=== PATIENT | female | born 1965 | race Caucasian/White ===

== ENCOUNTER 2020-03-14 23:01 | Emergency (ER) | payer SELFPAY ==
[~2020-03-14] VITALS: Ht 152.4 cm; Wt 54.4 kg
[2020-03-14 23:30] VITALS: BP_SYST 130
--- NOTE | 2020-03-14 23:30 | NUR ---
Pt ambulatory to bed 3 for evaluation
--- NOTE | 2020-03-14 23:42 | NUR ---
ER Dr. MUSA at bedside examining patient.
[2020-03-14] MEDS ORDERED: NACL 0.9% 1,000 ML IV ONE (23:53)
--- NOTE | 2020-03-14 23:57 | NUR ---
PT IN [facility] SIDE RAILS UP.
[2020-03-15] MEDS ORDERED: MORPHINE 2 MG/ML INJ. SYRINGE IVP ONE
[2020-03-15] MEDS ORDERED: ONDANSETRON HCL 4 MG/2 ML VIAL IVP ONE
[2020-03-15 00:10] LABS: BILIRUBIN,URINE NEGATIVE (NEGATIVE); BLOOD, URINE 3+ (NEGATIVE); COLOR,URINE YELLOW (YELLOW); GLUCOSE,URINE NEGATIVE (NEGATIVE); KETONES,URINE 2+ (NEGATIVE); LEUKOCYTE ESTERASE ,URINE NEGATIVE (NEGATIVE); NITRITE, URINE NEGATIVE (NEGATIVE); PROTEIN URINE NEGATIVE (NEGATIVE); UROBILINOGEN,URINE 0.2 (0.2-1.0)
[2020-03-15 00:13] LABS: CLARITY/URINE SLIGHTLY CLOUDY (CLEAR)
[2020-03-15 00:44] LABS: CALCIUM 8.7 mg/dL (8.4-11.0); CREATININE 0.93 mg/dL (0.55-1.30); POTASSIUM 3.4 mmol/L (3.5-5.1)
[2020-03-15 00:50] LABS: ALBUMIN 3.6 g/dL (3.4-4.8); TOTAL BILIRUBIN 0.8 mg/dL (0.0-1.0)
[2020-03-15 00:51] LABS: BASOPHILS % (AUTO) 0.4 % (0.0-2.0); EOSINOPHILS # (AUTO) 0.1 K/uL (0.0-0.4); EOSINOPHILS % (AUTO) 0.8 % (0.0-4.0); HEMOGLOBIN 13.3 g/dL (12.0-16.0); LYMPHOCYTES # (AUTO) 1.3 K/uL (1.0-5.5); LYMPHOCYTES % (AUTO) 11.7 % (20.5-51.5); MEAN CORPUSCULAR HEMOGLOBIN 30 pg (27-31); MEAN CORPUSCULAR HGB CONC 33 % (32-36); MEAN CORPUSCULAR VOLUME 91 fL (79.0-98.0); MONOCYTES # (AUTO) 0.6 K/uL (0.0-1.0); MONOCYTES % (AUTO) 4.9 % (1.7-9.3); NEUTROPHILS # (AUTO) 9.4 K/uL (1.8-7.7); NEUTROPHILS % (AUTO) 82.2 % (40.0-70.0); PLATELET COUNT (AUTO) 271 K/uL (130-430); RED BLOOD CELL COUNT(AUTO) 4.42 MIL/uL (4.2-6.2); RED CELL DISTRIBUTION WIDTH 13.9 % (9.0-15.0); WHITE BLOOD COUNT (AUTO) 11.4 K/uL (4.8-10.8)
[2020-03-15 00:52] LABS: INR 1.1 (0.8-1.2); PROTHROMBIN TIME 10.6 SECS (9.5-12.5)
[2020-03-15] MEDS ORDERED: IOHEXOL 100 ML IV ONE (01:16)
[2020-03-15 01:33] LABS: BACTERIA,URINE FEW /HPF (None Seen); WBC,URINE 0-3 /HPF (0-3)
[2020-03-15] MEDS ORDERED: SULFAMETHOXAZOLE/TRIMETHOPR DS 1 TABLET PO ONE (02:30)
[2020-03-15] MEDS ORDERED: metroNIDAZOLE 500 MG TABLET PO ONE (02:30)
--- NOTE | 2020-03-15 03:10 | NUR ---
Medicated per MD orders. IVF 0.9 NS started at 0021, end time 309.
--- NOTE | 2020-03-15 03:15 | NUR ---
Patient given written and verbal discharge instructions and verbalizes understanding. ER MD MUSA discussed with patient the results and treatment provided. Patient in stable condition. ID arm band removed. IV catheter removed intact and dressing applied, no active bleeding. Rx of NORCO, FLAGYL, AND BACTRIM DS given. Patient educated on pain management and to follow up with PMD. Pain Scale 1/10. Opportunity for questions provided and answered. Medication side effect fact sheet provided.
[2020-03-15 03:16] VITALS: BP_SYST 130
[2020-03-16] MEDS ORDERED: LISI-600 PO (01:28)
--- NOTE | 2020-03-19 13:03 | NUR ---
Note stefanone in EDM - 03/19/20 at 1350 by PHUONG Medicated per MD orders. IVF infusing with no s/s of infiltration at this time. Will cont to monitor. 0.9 NS end time 0310 03/15/2020.
== END 2020-03-15 03:16 | disposition home or self-care (01) ==
LOC: SED 23:01
DX: K52.9 Noninfective gastroenteritis and colitis, unspecified (principal); I10 Essential (primary) hypertension
CPT/HCPCS: 36415; 74177; 80053; 81000; 83690; 85025; 85610; 85730; 96361; 96374; 96375; 99285; J2270; J2405; Q9967

== ENCOUNTER 2020-03-15 19:55 | Inpatient (IN) | payer SELFPAY ==
[~2020-03-15] VITALS: Ht 152.4 cm; Wt 54.5 kg
[2020-03-15 20:08] VITALS: BP_SYST 131
--- NOTE | 2020-03-15 21:53 | NUR ---
Patient to ER bed 02 to gown for evaluation. Side rails up.
--- NOTE | 2020-03-15 22:10 | NUR ---
PT A&O X4 C/O OF LOWER ABDOMINAL PAIN, WEAKNESS, NAUSEA, VOMITING, AND FEELING FAINT. PT CAME TO ER YESTERDAY AND WAS SEEN BY PHYSICIAN FOR SAME SYMPTOMS. PT REPORTS TAKING A NORCO AROUND 630/7PM. PT WAS PRESCRIBED PAIN MEDICATIONS AND ANTIBIOTICS YESTERDAY. PT STATES HER ABDOMINAL PAIN IS A 5 OUT OF 10 AND DESCRIBES IT FEELING LIKE PRESSURE. PT VOMITING ONCE TODAY AROUND 930PM. PT HAS HX OF HTN. NO OTHER MEDICAL COMPLAINTS AT THIS TIME, WILL CONTINUE TO MONITOR.
[2020-03-15] MEDS ORDERED: NACL 0.9% 1,000 ML IV ONE (22:14)
[2020-03-15] MEDS ORDERED: ONDANSETRON HCL 4 MG/2 ML VIAL IVP ONE (22:15)
[2020-03-15] MEDS ORDERED: MORPHINE 2 MG/ML INJ. SYRINGE IVP ONE (22:15)
--- NOTE | 2020-03-15 22:16 | NUR ---
ER Dr. MUSA at bedside examining patient.
--- NOTE | 2020-03-15 22:48 | NUR ---
# 20 gauge angiocath placed to RAC. Use of asceptic technique. Opsite placed over site. Blood return noted. Flushed with 10 cc of normal saline. No evidence of infiltration noted. Patient tolerated well.
[2020-03-15 22:58] LABS: BILIRUBIN,URINE 2+ (NEGATIVE); BLOOD, URINE 2+ (NEGATIVE); CLARITY/URINE SL CLOUDY (CLEAR); COLOR,URINE YELLOW (YELLOW); GLUCOSE,URINE NEGATIVE (NEGATIVE); KETONES,URINE 3+ (NEGATIVE); LEUKOCYTE ESTERASE ,URINE TRACE (NEGATIVE); NITRITE, URINE POSITIVE (NEGATIVE); PH,URINE 6.5 (5.0-8.0); PROTEIN URINE TRACE (NEGATIVE)
--- NOTE | 2020-03-15 22:59 | NUR ---
HELD MORPHINE 2MG IVP. PT BP 105/67. MD AWARE.
--- NOTE | 2020-03-15 23:05 | NUR ---
PT AMBULATED TO BATHROOM WITH STEADY GAIT.
[2020-03-15 23:14] LABS: BACTERIA,URINE MODERATE /HPF (None Seen)
[2020-03-15 23:49] LABS: BASOPHILS % (AUTO) 0.2 % (0.0-2.0); EOSINOPHILS % (AUTO) 0.1 % (0.0-4.0); HEMOGLOBIN 11.7 g/dL (12.0-16.0); LYMPHOCYTES # (AUTO) 0.7 K/uL (1.0-5.5); MEAN CORPUSCULAR HEMOGLOBIN 31 pg (27-31); MEAN CORPUSCULAR HGB CONC 34 % (32-36); MEAN CORPUSCULAR VOLUME 91 fL (79.0-98.0); MONOCYTES # (AUTO) 0.6 K/uL (0.0-1.0); MONOCYTES % (AUTO) 5.3 % (1.7-9.3); NEUTROPHILS # (AUTO) 10.5 K/uL (1.8-7.7); NEUTROPHILS % (AUTO) 88.4 % (40.0-70.0); PLATELET COUNT (AUTO) 236 K/uL (130-430); RED BLOOD CELL COUNT(AUTO) 3.83 MIL/uL (4.2-6.2); RED CELL DISTRIBUTION WIDTH 13.7 % (9.0-15.0); WHITE BLOOD COUNT (AUTO) 11.9 K/uL (4.8-10.8)
[2020-03-15 23:51] LABS: CALCIUM 8.2 mg/dL (8.4-11.0); CREATININE 0.9 mg/dL (0.55-1.30); POTASSIUM 3.7 mmol/L (3.5-5.1)
[2020-03-15 23:56] LABS: ALBUMIN 3.3 g/dL (3.4-4.8); TOTAL BILIRUBIN 0.6 mg/dL (0.0-1.0)
[2020-03-16] MEDS ORDERED: ACETAMINOPHEN 325 MG TABLET PO PRN (00:30)
[2020-03-16] MEDS ORDERED: PIPERACILLIN/TAZO 3.375 GM in NS 50 ML IV ONE (00:30)
[2020-03-16] MEDS ORDERED: HYDROcodone/ACETAMIN 5-325 MG TAB (NORCO/ VICODIN) PO PRN (00:30)
[2020-03-16] MEDS ORDERED: MORPHINE 2 MG/ML INJ. SYRINGE IVP PRN (00:30)
[2020-03-16] MEDS ORDERED: ONDANSETRON HCL 4 MG/2 ML VIAL IVP PRN (00:30)
--- NOTE | 2020-03-16 00:31 | NUR ---
Patient will be admitted to care of Dr. Farnsworth. Admitted to Medsurg unit. Will go to room PENDING ([facility] HOLD IN ER). Belongings list completed. Complete and up to date summary report printed. SBAR report to be given at bedside with opportunity for questions.
--- NOTE | 2020-03-16 00:35 | NUR ---
PT RESTING IN BED COMFORTABLY, VITAL SIGNS STABLE.
[2020-03-16] MEDS ORDERED: LISI-600 PO (01:28)
--- NOTE | 2020-03-16 01:29 | NUR ---
Medication reconciliation completed with information provided by PATIENT. Any prior medication reconciliation on file was reviewed and corrected.
--- NOTE | 2020-03-16 01:29 | NUR ---
Patient's code status is FULL CODE paperwork completed and placed in chart.
[2020-03-16] MEDS: D5/0.45 NS 1,000 ML IV SCH ×2 (01:38→13:46)
[2020-03-16] MEDS ORDERED: PIPERACILLIN/TAZOBACTAM 3.375 GM/VIAL (ZOSYN) IV ONE (01:39)
--- NOTE | 2020-03-16 01:45 | NUR ---
PT REPORTS SHE IS ONLY IN PAIN WHEN SHE BREATHES DEEPLY. PAIN MEDICATION HELD.
--- NOTE | 2020-03-16 02:45 | NUR ---
PATIENT VITAL SIGNS STABLE, PATIENT SLEEPING IN BED COMFORTABLY.
--- NOTE | 2020-03-16 04:23 | NUR ---
PT DENIES PAIN, SLEEPING IN BED. NO SIGNS OF ACUTE DISTRESS.
[2020-03-16] MEDS ORDERED: PIPERACILLIN/TAZO 3.375/DEX-IS 50 ML IV SCH (06:00)
--- NOTE | 2020-03-16 06:18 | NUR ---
PT SLEEPING COMFORTABLY IN BED. VITAL SIGNS STABLE.
--- NOTE | 2020-03-16 07:23 | NUR ---
REPORT GIVEN TO RAZA WARREN FOR CONTINUATION OF CARE.
--- NOTE | 2020-03-16 07:30 | NUR ---
Patient is sleeping comfortably in bed, respirations even and unlabored.
--- NOTE | 2020-03-16 09:44 | NUR ---
ADMIT NOTE Received pt from ER to the floor with a diagnosis of abdominal pain. Admission process initiated. patient oriented to pain management, safety and call light-teach back done.
--- NOTE | 2020-03-16 09:50 | NUR ---
Patient will be admitted to care of Dr. Pizarro. Admitted to [facility] unit. Will go to room 102B. Belongings list completed. Complete and up to date summary report printed. SBAR report to be given at bedside with opportunity for questions.
[2020-03-16 10:05] VITALS: BP_SYST 109
[2020-03-16 11:21] VITALS: BP_SYST 130
[2020-03-16] MEDS: metroNIDAZOLE 500 mg/NS 100 ML IV SCH ×2 (13:46→22:41)
--- NOTE | 2020-03-16 15:02 | NUR ---
SS NOTES/DCP/SELF-PAY: MODELER was referred by SS to see patient for DCP and self-pay. Demographic information verified and updated. MODELER met with patient at bedside. Pt appeared to be well-groomed, alert and oriented x4. Pt had normal mood, with normal speech and average aye contact. Pt was cooperative throughout the conversation. Pt is a 54 y/o female who came in via ED for abdominal pain. Pt lives with family and is independent with ADL's and does not require any DME. Pt goes and sees an MD at [facility] in [place]. Pt denies any history of mental health or substance use/abuse. 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 Pt stated that she thinks she has [facility] [employer] only, spoke with Amberly Saba from Admitting, unable to verify insurance; system is down. MODELER emailed Nate from [facility] to follow up; pt agreed. No further SS needs identified but will be available when needed.
[2020-03-16 15:38] VITALS: BP_SYST 117
[2020-03-16 19:00] VITALS: BP_SYST 115
--- NOTE | 2020-03-16 19:20 | NUR ---
Handoff with night team registered nurse, Raymond. Zaire Bryan RN
--- NOTE | 2020-03-16 20:00 | NUR ---
03/16/201999 Pt received awoke alert OX4 lungs clear, abdomen soft non distended, skin intact. Pt denies having pain.V/SS. Pt's bed in low position wheels locked call light in reach.Will continue to monitor. 03/17/202019 Pt discharged to home via W/C accompanied by staff nurse and family. IV access and name band removed. Pt left in a private car. V/SS and pt denied having pain. Belongs with the pt on discharge, along with discharge instructs.
[2020-03-16 22:50] VITALS: BP_SYST 107
== END 2020-03-16 23:55 | disposition home or self-care (01) | DRG 392 ==
LOC: SED 19:55 → SMU 03-16 00:26
PROVIDERS: ADMIT Surgery; ATTEND Surgery
DX: K52.9 Noninfective gastroenteritis and colitis, unspecified (principal); K37 Unspecified appendicitis; K29.70 Gastritis, unspecified, without bleeding; I10 Essential (primary) hypertension; Z79.899 Other long term (current) drug therapy
CPT/HCPCS: 36415; 80053; 81000-TC; 83605; 85025; 87040-TC; 87086; 96361; 96365; 96367; 96375; 99285; J2270; J2405; J2543; J3490; J7030